=== PATIENT | male | born 1965 | race Caucasian/White ===

== ENCOUNTER 2021-05-04 13:26 | Day surgery (SDCO) | payer OTHER ==
[~2021-05-04] VITALS: Ht 177.8 cm; Wt 126.3 kg
[~2021-05-04 13:26] MED LIST: IBUPROFEN800 MG PO; PERCOCET 5-3251 EACH PO; TEGRETOL200 MG PO
[2021-05-04 14:28] LABS: BASOPHIL 0.6 % (0-2); EOSINOPHIL 3.3 % (0-5); HCT 37.5 % (42.0-52.0); HGB 12.4 g/dl (13.2-18.0); LYMPHOCYTE 20.3 % (15-48); MCHC 33.1 g/dL (32.0-36.0); MCV 93.8 fL (78.0-100.0); MONOCYTE 8.7 % (0-12); MPV 12.4 fL (6.0-9.5); NEUTROPHIL 66.6 % (41-80); NRBC 0; PLT 220 K/uL (150-400); RDW 13.2 % (11.5-14.0); WBC 7.8 K/uL (4.0-10.5)
[2021-05-04 14:41] LABS: ALBUMIN 2.5 g/dL (3.4-5.0); BILIRUBIN - TOTAL 0.2 mg/dL (0.2-1.0); BUN/CREAT RATIO (CALC) 18.7 RATIO; CREATININE 1.07 mg/dL (0.67-1.17); GLOBULIN (CALCULATION) 3.8 g/dL; POTASSIUM 4.2 mmol/L (3.5-5.1); TOTAL PROTEIN 6.3 g/dL (6.4-8.2)
[2021-05-04 15:04] LABS: CORONAVIRUS 2019 SARS-COV-2 NEGATIVE (NEGATIVE); INFLUENZA A NAA NEGATIVE (NEGATIVE)
[2021-05-04 17:36] LABS: IRON % SATURATION 27.8 %SAT (20-50)
[2021-05-04] MEDS ORDERED: CARDURA2 MG PO (17:59)
[2021-05-04] MEDS ORDERED: TRESIBA FL100 UNIT/1 SC (17:59)
[2021-05-04] MEDS ORDERED: NORVASC5 MG PO (18:00)
[2021-05-04] MEDS ORDERED: HCTZ25 MG PO (18:00)
[2021-05-04] MEDS ORDERED: PROZAC20 MG PO (18:01)
[2021-05-04] MEDS ORDERED: AMARYL2 MG PO (18:01)
[2021-05-04] MEDS ORDERED: LIPITOR40 MG PO (18:01)
[2021-05-04 18:02] LABS: CHOLESTEROL 218 mg/dL (<200); HDL 49 mg/dL (40-60); LDL - DIRECT 141 mg/dL (<100); TRIGLYCERIDES 240 mg/dL (<150)
[2021-05-04] MEDS ORDERED: PRINIVIL20 MG PO (18:02)
[2021-05-04] MEDS ORDERED: TEGRETOL200 MG PO (18:02)
[2021-05-04] MEDS ORDERED: METFORMIN HCL500 MG PO (18:03)
[2021-05-05 04:39] LABS: BASOPHIL 0.2 % (0-2); EOSINOPHIL 0 % (0-5); HCT 36.2 % (42.0-52.0); LYMPHOCYTE 7.9 % (15-48); MCH 30.9 pg (25.0-31.0); MCHC 33.1 g/dL (32.0-36.0); MCV 93.3 fL (78.0-100.0); MONOCYTE 3.6 % (0-12); MPV 12.2 fL (6.0-9.5); NEUTROPHIL 87.7 % (41-80); NRBC 0; PLT 221 K/uL (150-400); RBC 3.88 M/uL (4.70-6.00); RDW 13.3 % (11.5-14.0); WBC 13.2 K/uL (4.0-10.5)
[2021-05-05 05:10] LABS: ALBUMIN 2.4 g/dL (3.4-5.0); BILIRUBIN - TOTAL 0.2 mg/dL (0.2-1.0); CREATININE 1.22 mg/dL (0.67-1.17); GLOBULIN (CALCULATION) 3.8 g/dL; POTASSIUM 4.6 mmol/L (3.5-5.1); TOTAL PROTEIN 6.2 g/dL (6.4-8.2)
[2021-05-05] MEDS ORDERED: FOLIC ACID1 MG PO (11:17)
[2021-05-05] MEDS ORDERED: PRINIVIL20 MG PO (11:33)
[2021-05-05] MEDS ORDERED: AMARYL2 MG PO (11:33)
[2021-05-05] MEDS ORDERED: DUONEB 2.5-0.5M1 AMP NEB (11:33)
[2021-05-05] MEDS ORDERED: LIPITOR40 MG PO (11:33)
[2021-05-05] MEDS ORDERED: TEGRETOL200 MG PO (11:33)
[2021-05-05] MEDS ORDERED: CARDURA2 MG PO (11:33)
[2021-05-05] MEDS ORDERED: NORVASC5 MG PO (11:33)
[2021-05-05] MEDS ORDERED: PROZAC20 MG PO (11:33)
[2021-05-05] MEDS ORDERED: HCTZ25 MG PO (11:33)
[2021-05-05] MEDS ORDERED: PREDNISONE 20MG20 MG PO (11:33)
[2021-05-05] MEDS ORDERED: METFORMIN HCL500 MG PO (11:33)
== END 2021-05-05 13:15 | disposition home or self-care (01) ==
LOC: FER 13:26 → FMS 15:57 → FER 16:25 → FMS 05-05 13:15
PROVIDERS: Internal Medicine; ADMIT Family Medicine
DX: J45.21 Mild intermittent asthma with (acute) exacerbation (principal); I16.0 Hypertensive urgency; D64.9 Anemia, unspecified; E11.22 Type 2 diabetes mellitus with diabetic chronic kidney disease; E11.65 Type 2 diabetes mellitus with hyperglycemia; I12.9 Hypertensive chronic kidney disease with stage 1 through stage 4 chronic kidney disease, or unspecified chronic kidney disease; N18.2 Chronic kidney disease, stage 2 (mild); E78.5 Hyperlipidemia, unspecified; E66.9 Obesity, unspecified; G47.33 Obstructive sleep apnea (adult) (pediatric); Z20.822 Contact with and (suspected) exposure to COVID-19
CPT/HCPCS: 36415; 71045; 80053; 80061; 82607; 82962; 83036; 83540; 83550; 83880; 84145; 84443; 84484; 85025; 93005; 94010; 94640; 94660; G0378; J1100; J1650; J3490; J7512; U0002